=== PATIENT | female | born 1990 | race Caucasian/White ===

== ENCOUNTER 2016-04-18 08:31 | Emergency (ER) | payer OTHER ==
[~2016-04-18] VITALS: Ht 157.5 cm; Wt 60.0 kg
[2016-04-18 08:38] VITALS: BP 104/66; PULSE 72; RESP 16; TEMP 98.2; O2SAT 100
[2016-04-18] MEDS ORDERED: TRAM50TA PO (09:03)
--- NOTE | 2016-04-18 09:07 | PD ---
HPI Chief Complaint: Abdominal Pain Time Seen by Provider: 08:45 Travel History International Travel<30 days: No Contact w/Intl Traveler<30days: No Traveled to known affect area: No History of Present Illness HPI The patient was seen and examined in the presence of the nurse. This patient has intermittent pelvic pain for the last 3 months. It occurs frequently. She has no bleeding or discharge. No fever. She has no nausea or vomiting or diarrhea. She eats well is that she has a lot of pain. It is not affected by eating. She has not had it evaluated. She is in the process of getting a primary physician. PFSH Past Medical History Asthma: Yes Diminished Hearing: No Tetanus Vaccination: Unknown Influenza Vaccination: Yes ?: Not LMP: 04/14/2016 Tubal Ligation: Yes Social History Alcohol Use: Yes (Occ.) Tobacco Use: Yes (2 PPD) Substance Use: No Allergies-Medications (Allergen,Severity, Reaction): Coded Allergies: No Known Allergies (Unverified , 04/18/16) Reported Meds & Prescriptions Reported Meds & Active Scripts Active Tramadol (Tramadol HCl) 50 Mg Tab 50 Mg PO Q6H PRN Review of Systems General / Constitutional: No: Fever Eyes: No: Visual changes HENT: No: Headaches Cardiovascular: No: Chest Pain or Discomfort Respiratory: No: Shortness of Breath Gastrointestinal: Positive: Abdominal Pain Genitourinary: Positive: Pelvic Pain, No: Dysuria Musculoskeletal: No: Pain Skin: No Rash Neurologic: No: Weakness Psychiatric: No: Depression Endocrine: No: Polydipsia Hematologic/Lymphatic: No: Easy Bruising Physical Exam Narrative GENERAL: Well-nourished, well-developed patient in no apparent distress. SKIN: Warm and dry. HEAD: Atraumatic. Normocephalic. EYES: Pupils equal and round. No scleral icterus. No injection or drainage. ENT: No nasal bleeding or discharge. Mucous membranes pink and moist. NECK: Trachea midline. No JVD. CARDIOVASCULAR: Regular rate and rhythm. No murmur appreciated. RESPIRATORY: No accessory muscle use. Clear to auscultation. Breath sounds equal bilaterally. GASTROINTESTINAL: Abdomen soft, some tenderness in the right lower quadrant without rebound or guarding, nondistended. Hepatic and splenic margins not palpable. MUSCULOSKELETAL: No obvious deformities. No clubbing. No cyanosis. No edema. NEUROLOGICAL: Awake and alert. No obvious cranial nerve deficits. Motor grossly within normal limits. Normal speech. PSYCHIATRIC: Appropriate mood and affect; insight and judgment normal. Data Data Last Documented VS Vital Signs Date Time Temp Pulse Resp B/P Pulse Ox O2 Delivery O2 Flow Rate FiO2 04/18/16 08:38 98.2 72 16 104/66 100 MDM Medical Decision Making Medical Screen Exam Complete: Yes Emergency Medical Condition: Yes Medical Record Reviewed: Yes Differential Diagnosis Tubal , colitis, appendicitis Narrative Course I have reviewed the patient's electronic medical record. I believe I can rule out appendicitis based on history and exam. She's had this for 3 months without nausea or vomiting and eats well during the pain. I don't think it requires emergent CT to evaluate the appendix. I think she would be much more likely to get benefit from a pelvic ultrasound. I offered to order one as an outpatient but she declines. She would like to establish the primary first which makes sense as there will be nobody to act on the results regardless. I wrote her some tramadol for pain relief. Urine is negative. She has no vaginal discharge or irritation or any fever to suggest infection. Diagnosis Primary Impression: Chronic pelvic pain in female Additional Instructions: The patient was advised to follow up with their physician and return if they worsen. The patient was warned about potential sedation for the medications they will receive on prescription. Med/Other Pt SpecificInfo: Prescription(s) given Scripts Tramadol 50 Mg Tab50 Mg PO Q6H PRN (PAIN) #25 TAB Ref 0 Prov:Torrey Manuel MD 04/18/16 Disposition: 01 DISCHARGE HOME Condition: Stable Torrey Manuel MD Apr 18, 2016 09:07
== END 2016-04-18 09:21 | disposition home or self-care (01) ==
LOC: PHED 08:31
DX: R10.2 Pelvic and perineal pain (principal); G89.29 Other chronic pain
CPT/HCPCS: 99283

== ENCOUNTER 2016-08-26 09:43 | Emergency (ER) | payer OTHER ==
[~2016-08-26] VITALS: Ht 157.5 cm; Wt 59.5 kg
[~2016-08-26 09:43] MED LIST: TRAM50TA PO
[2016-08-26 09:52] VITALS: BP 112/63; PULSE 79; RESP 18; TEMP 98.9; O2SAT 99
[2016-08-26] MEDS ORDERED: AZIT250T3 PO (10:37)
[2016-08-26] MEDS ORDERED: ALBUAER3 INH (10:37)
[2016-08-26] MEDS ORDERED: PROM6.256 PO (10:37)
--- NOTE | 2016-08-26 10:37 | PD ---
HPI Chief Complaint: ENT Complaint Time Seen by Provider: 10:22 Travel History International Travel<30 days: No Contact w/Intl Traveler<30days: No Traveled to known affect area: No History of Present Illness HPI This is a 26-year-old female who presents to the emergency department with productive cough, rhinorrhea, body aches and fatigue. She says she feels feverish but doesn't have a thermometer so couldn't check her temperature. She denies any nausea, vomiting, diarrhea or dysuria. Her symptoms of been constant for 3 days and worsening. PFSH Past Medical History Asthma: Yes Diminished Hearing: No Tetanus Vaccination: Unknown ?: Not Tubal Ligation: Yes Social History Alcohol Use: Yes (Occ.) Tobacco Use: Yes (/2 PPD) Substance Use: No Allergies-Medications (Allergen,Severity, Reaction): Coded Allergies: No Known Allergies (Unverified , 08/26/16) Reported Meds & Prescriptions Reported Meds & Active Scripts Active No Active Prescriptions or Reported Medications Review of Systems Except as stated in HPI: all other systems reviewed are Neg Physical Exam Narrative GENERAL:Well appearing, no acute distress SKIN: Focused skin assessment warm and dry. HEAD: Atraumatic. Normocephalic. EYES: Pupils equal and round. No injection or drainage. ENT: Moist mucous membranes. Mild posterior pharyngeal erythema with no exudates. No lymphadenopathy. NECK: Trachea midline. CARDIOVASCULAR: Regular rate and rhythm. No murmur appreciated. RESPIRATORY: Clear to auscultation. Breath sounds equal bilaterally. GASTROINTESTINAL: Abdomen soft, non-tender, nondistended. MUSCULOSKELETAL: No obvious deformities. NEUROLOGICAL: Awake and alert. No obvious cranial nerve deficits. Moving all extremities. PSYCHIATRIC: Appropriate mood and affect; insight and judgment normal. Data Data Last Documented VS Vital Signs Date Time Temp Pulse Resp B/P Pulse Ox O2 Delivery O2 Flow Rate FiO2 08/26/16 09:52 98.9 79 18 112/63 99 MDM Medical Decision Making Medical Screen Exam Complete: Yes Emergency Medical Condition: Yes Differential Diagnosis Bronchitis, pneumonia, viral upper respiratory infection Narrative Course This is a 26-year-old female who has a history of smoking who presents to the emergency department with a productive cough, rhinorrhea and body aches. I suspect the patient has bronchitis. She has a reassuring physical exam and no hypoxia. Patient will be discharged on bronchodilators, antibiotic and cough medication in the setting of her smoking history. Diagnosis Primary Impression: Bronchitis Patient Instructions: General Instructions Additional Instructions: If you develop severe chest pain, shortness of breath, sweating, lightheadedness , dizziness or difficulty breathing return to the emergency department immediately. Followup with your primary care physician in 2-3 days if your symptoms are not resolved. Med/Other Pt SpecificInfo: Prescription(s) given Scripts Promethazine-Codeine Liq 6.25-10 Mg/5 Ml Syrp5 Ml PO Q4H PRN (COUGH AND/OR COLD SYMPTOMS) #100 ML Prov:Linda Rowley MD 08/26/16 Albuterol 8.5 GM Inh (Proair Hfa 8.5 GM Inh)90 Mcg/Act Aer2 Puff INH Q4-6H PRN ( SHORTNESS OF BREATH) #1 INHALER 108 mcg/actuation Prov:Linda Rowley MD 08/26/16 Azithromycin 250 Mg [id number] Mg PO DIRECTED #6 TAB Take 2 tabs (500 mg) on day 1 then 1 tab daily x 4 days. Prov:Linda Rowley MD 08/26/16 Disposition: 01 DISCHARGE HOME Condition: Stable Linda Rowley MD Aug 26, 2016 10:37
== END 2016-08-26 10:56 | disposition home or self-care (01) ==
LOC: PHED 09:43
DX: J40 Bronchitis, not specified as acute or chronic (principal); F17.210 Nicotine dependence, cigarettes, uncomplicated
CPT/HCPCS: 99284

== ENCOUNTER 2017-02-05 08:14 | Emergency (ER) | payer OTHER ==
[~2017-02-05] VITALS: Ht 157.5 cm; Wt 64.0 kg
[~2017-02-05 08:14] MED LIST changes: +ALBUAER3 INH; +AZIT250T3 PO; +PROM6.256 PO; -TRAM50TA PO
[2017-02-05 08:22] VITALS: BP 116/78; PULSE 87; RESP 15; TEMP 98.4; O2SAT 100
--- NOTE | 2017-02-05 09:19 | PD ---
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 Also had white vaginal discharge for a few days. Pt said her baby's father informed her he was just treated for STI and she wants to be treated as well. Denies any fever, chest pain, sob, n/v, abdominal pain, vaginal bleeding. PFSH Past Medical History Asthma: Yes Diminished Hearing: No ?: Not LMP: 01/13/2017 Tubal Ligation: Yes Social History Alcohol Use: Yes (Occ.) Tobacco Use: Yes (1/2 PPD) Substance Use: No Allergies-Medications (Allergen,Severity, Reaction): Coded Allergies: No Known Allergies (Unverified Adverse Reaction, Unknown, 02/05/17) Reported Meds & Prescriptions Reported Meds & Active Scripts Active No Active Prescriptions or Reported Medications Review of Systems Except as stated in HPI: all other systems reviewed are Neg Physical Exam Narrative GENERAL: 27yo F not in distress. SKIN: Focused skin assessment warm/dry. HEAD: Atraumatic. Normocephalic. CARDIOVASCULAR: Regular rate and rhythm. No murmur appreciated. RESPIRATORY: No accessory muscle use. Clear to auscultation. Breath sounds equal bilaterally. GASTROINTESTINAL: Abdomen soft, non-tender, nondistended. No rebound tenderness or guarding. PELVIC: Small amount of vaginal discharge. No CMT or adnexal tenderness bilaterally. MUSCULOSKELETAL: No obvious deformities. No clubbing. No cyanosis. No edema. NEUROLOGICAL: Awake and alert. No obvious cranial nerve deficits. Motor grossly within normal limits. Normal speech. PSYCHIATRIC: Appropriate mood and affect; insight and judgment normal. Data Data Last Documented VS Vital Signs Date Time Temp Pulse Resp B/P (MAP) Pulse Ox O2 Delivery O2 Flow Rate FiO2 02/05/17 08:22 98.4 87 15 116/78 (91) 100 Orders Orders Gc And Chlamydia Pcr (02/05/17 09:17) Wet Prep Profile (02/05/17 09:17) Urinalysis - C+S If Indicated (02/05/17 09:17) Ed Urine Pregnancytest Poc (02/05/17 09:17) Urine Culture (02/05/17 09:22) Azithromycin Powd Pack (Zithromax Powd P (02/05/17 11:15) Rocephin 250mg Vial Im X 1 (02/05/17 11:15) Lidocaine 1% Inj (50 Ml) (Xylocaine 1% I (02/05/17 11:15) Labs Laboratory Tests Test 02/05/17 09:22 02/05/17 09:37 Urine Collection Type CLEAN CATCH Urine Color YELLOW Urine Turbidity SLIGHT Urine pH 6.5 Urine Specific [place] 1.026 Urine Protein NEG mg/dL Urine Glucose (UA) NEG mg/dL Urine Ketones NEG mg/dL Urine Occult Blood MOD Urine Nitrite NEG Urine Bilirubin NEG Urine Leukocyte Esterase MOD Urine RBC 20-24 /hpf Urine WBC 100-200 /hpf Urine WBC Clumps MOD Urine Squamous Epithelial Cells > 8 /hpf Urine Bacteria MANY /hpf Microscopic Urinalysis Comment CULTURE INDICATED Urine Collection Time 09:22 Clue Cells (Wet Prep) NONE SEEN Vaginal Trichomonas (Wet Prep) NONE SEEN Vaginal Yeast (Wet Prep) NONE SEEN MDM Medical Decision Making Medical Screen Exam Complete: Yes Emergency Medical Condition: Yes Differential Diagnosis STI vs. bacterial vaginosis vs. vaginal candidiasis vs. UTI Narrative Course 27yo F with dysuria and vaginal discharge. Also wants to be treated for STI since her baby's father was treated for chlamydia recently. UA showed moderate leukocyte. WBC 100-200, will treat with oral antibiotics. Urine negative. Wet prep negative. Pt given ceftriaxone IM with lidocaine and azithromycin empirically. No systemic symptoms and well appearing. Return precautions given. Diagnosis Primary Impression: UTI (urinary tract infection) Qualified Codes: N39.0 - Urinary tract infection, site not specified; R31.9 - Hematuria, unspecified Patient Instructions: General Instructions Departure Forms: Tests/Procedures Additional Instructions: Please follow up with your health informatics instructor in 2-3 days. Return to the ED if symptoms worsen. Med/Other Pt SpecificInfo: Prescription(s) given Scripts Sulfamethoxazole-Trimethoprim (Bactrim DS) 800-160 Mg Tab 1 TAB PO BID for Infection, #14 TAB 0 Refills Prov: Janette Reyes DO 02/05/17 Disposition: 01 DISCHARGE HOME Condition: Stable Janette Reyes Feb 05, 2017 09:19
[2017-02-05 09:29] LABS: BLOOD, URINE MOD (NEG); GLUCOSE,URINE NEG (NEG); KETONE, URINE NEG (NEG); NITRITE,URINE NEG (NEG); PH, URINE 6.5 (5.0-8.5)
[2017-02-05 09:43] LABS: METHOD OF COLLECTION CLEAN CATCH; URINE COLOR YELLOW (YELLW/STRAW)
[2017-02-05 09:45] LABS: BACTERIA, URINE MANY /hpf; SQUAMOUS EPITHELIAL CELL URINE > 8 /hpf (0-5); WBC, URINE 100-200 /hpf (0-5)
[2017-02-05 09:46] LABS: COMMENT (UR) CULTURE INDICATED; CULTURE IF INDICATED CULTURE INDICATED
[2017-02-05] MEDS ORDERED: cefTRIAXone 250 MG VIAL IM ONE (11:15)
[2017-02-05] MEDS ORDERED: LIDOCAINE HCL 1% 50 ML VIAL IM ONE (11:15)
[2017-02-05] MEDS ORDERED: AZITHROMYCIN PWD FOR SUSP 1 GM PACKET PO ONE (11:15)
[2017-02-05] MEDS ORDERED: BACT800T5 PO (11:18)
[2017-02-05 18:08] LABS: CHLAMYDIA PCR DETECTED (NOT DETECT); NEISSERIA PCR NOT DETECTED (NOT DETECT)
== END 2017-02-05 11:58 | disposition home or self-care (01) ==
LOC: PHED 08:14
DX: N39.0 Urinary tract infection, site not specified (principal); R31.9 Hematuria, unspecified; B96.20 Unspecified Escherichia coli [E. coli] as the cause of diseases classified elsewhere; N89.8 Other specified noninflammatory disorders of vagina; F17.200 Nicotine dependence, unspecified, uncomplicated; Z87.09 Personal history of other diseases of the respiratory system
CPT/HCPCS: 81001; 84703; 87077; 87086; 87186; 87210; 87491; 87591; 96372; 99284; J0696

== ENCOUNTER 2017-06-08 21:21 | Emergency (ER) | payer SELFPAY ==
[~2017-06-08] VITALS: Ht 157.5 cm; Wt 65.0 kg
[~2017-06-08 21:21] MED LIST changes: -ALBUAER3 INH; -AZIT250T3 PO; +BACT800T5 PO; -PROM6.256 PO
[2017-06-08 22:09] VITALS: BP 153/67; PULSE 60; RESP 18; TEMP 98.3; O2SAT 100
[2017-06-10] MEDS ORDERED: AZIT250T3 PO (10:49)
[2017-06-10] MEDS ORDERED: PRED20 PO (10:49)
== END 2017-06-09 00:54 | disposition left against medical advice (07) ==
LOC: NED 21:21
DX: R07.9 Chest pain, unspecified (principal); Z53.21 Procedure and treatment not carried out due to patient leaving prior to being seen by health care provider
CPT/HCPCS: 99281

== ENCOUNTER 2017-06-10 10:24 | Emergency (ER) | payer SELFPAY ==
[~2017-06-10] VITALS: Ht 157.5 cm; Wt 61.0 kg
[2017-06-10 10:30] VITALS: BP 124/55; PULSE 99; RESP 16; TEMP 97.9; O2SAT 100
[2017-06-10] MEDS ORDERED: PRED20 PO (10:49)
[2017-06-10] MEDS ORDERED: AZIT250T3 PO (10:49)
--- NOTE | 2017-06-10 10:49 | PD ---
HPI Chief Complaint: Cold / Flu Symptoms Time Seen by Provider: 10:43 Travel History International Travel<30 days: No Contact w/Intl Traveler<30days: No Traveled to known affect area: No History of Present Illness HPI 27-year-old female reports about 1 week of cough, chest congestion and occasional headache. She notes yellow phlegm at times. She denies fever. About one year ago the patient had bronchitis and reports it felt very similar. 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 Patient smokes tobacco. She has a history of asthma and uses an albuterol inhaler at home which times helps with coughing. PFSH Past Medical History Asthma: Yes Diminished Hearing: No Tetanus Vaccination: < 5 Years Influenza Vaccination: Yes ?: Not LMP: 05/27/17 Tubal Ligation: Yes Social History Alcohol Use: Yes (Occ.) Tobacco Use: Yes (/ PPD) Substance Use: No Allergies-Medications (Allergen,Severity, Reaction): Coded Allergies: No Known Allergies (Unverified Adverse Reaction, Unknown, 06/10/17) Reported Meds & Prescriptions Reported Meds & Active Scripts Active Prednisone 20 Mg Tab 40 Mg PO DAILY 4 Days Take 40 mg (2 tablets) daily for 5 days Azithromycin 250 Mg Tab 250 Mg PO DIRECTED Take 2 tabs (500 mg) on day 1 then 1 tab daily x 4 days. Review of Systems General / Constitutional: No: Fever, Chills Cardiovascular: No: Chest Pain or Discomfort Respiratory: Positive: Cough, No: Shortness of Breath Physical Exam Narrative GENERAL: 27-year-old female pleasant well-nourished well-developed no acute distress Vital Signs Date Time Temp Pulse Resp B/P (MAP) Pulse Ox O2 Delivery O2 Flow Rate FiO2 06/10/17 10:30 97.9 99 16 124/55 (78) 100 SKIN: Warm and dry. HEAD: Atraumatic. Normocephalic. EYES: Pupils equal and round. No scleral icterus. No injection or drainage. ENT: No nasal bleeding or discharge. Mucous membranes pink and moist. Posterior oropharynx is widely patent. NECK: Trachea midline. No JVD. CARDIOVASCULAR: Regular rate and rhythm. RESPIRATORY: Lungs are clear. No dyspnea/tachypnea. GASTROINTESTINAL: Abdomen soft, non-tender, nondistended. Hepatic and splenic margins not palpable. MUSCULOSKELETAL: Extremities without clubbing, cyanosis, or edema. No obvious deformities. Data Data Last Documented VS Vital Signs Date Time Temp Pulse Resp B/P (MAP) Pulse Ox O2 Delivery O2 Flow Rate FiO2 06/10/17 10:30 97.9 99 16 124/55 (78) 100 VS reviewed Orders Orders Ed Discharge Order (06/10/17 10:49) MDM Medical Decision Making Medical Screen Exam Complete: Yes Emergency Medical Condition: Yes Medical Record Reviewed: Yes Differential Diagnosis Bronchitis, influenza, pneumonia Narrative Course Presentation consistent with bronchitis The patient does mention some fullness in the left ear on exam there is trace erythema about the tympanic membrane without middle ear effusion or obscuration of bony landmarks such that ear infection is considered very unlikely. Scripts as below. Diagnosis Primary Impression: Bronchitis Referrals: Primary Care Physician 2 days Med/Other Pt SpecificInfo: Prescription(s) given Scripts Prednisone (Prednisone) 20 Mg Tab 40 MG PO DAILY for 4 Days, #8 TAB 0 Refills Take 40 mg (2 tablets) daily for 5 days Prov: Paulo Colon MD 06/10/17 Azithromycin (Azithromycin) 250 Mg Tab 250 MG PO DIRECTED for Infection, #6 TAB 0 Refills Take 2 tabs (500 mg) on day 1 then 1 tab daily x 4 days. Prov: Paulo Colon MD 06/10/17 Disposition: 01 DISCHARGE HOME Condition: Stable Paulo Colon MD Jun 10, 2017 10:49
== END 2017-06-10 11:10 | disposition home or self-care (01) ==
LOC: PHEFT 10:24
DX: J45.909 Unspecified asthma, uncomplicated (principal); F17.210 Nicotine dependence, cigarettes, uncomplicated; Z79.899 Other long term (current) drug therapy
CPT/HCPCS: 99284

== ENCOUNTER 2017-08-21 21:17 | Emergency (ER) | payer OTHER ==
[~2017-08-21] VITALS: Ht 157.5 cm; Wt 61.3 kg
[~2017-08-21 21:17] MED LIST changes: +AZIT250T3 PO; -BACT800T5 PO; +PRED20 PO
[2017-08-21 21:19] VITALS: BP 113/73; PULSE 62; RESP 18
[2017-08-21] MEDS ORDERED: cefTRIAXone 250 MG VIAL IM ONE (21:30)
[2017-08-21] MEDS ORDERED: AZITHROMYCIN 250 MG TAB PO ONE (21:30)
[2017-08-21] MEDS ORDERED: NYST1000 SWISH-SWAL (21:33)
--- NOTE | 2017-08-21 21:35 | PD ---
HPI Chief Complaint: ENT Complaint Time Seen by Provider: 21:25 Travel History International Travel<30 days: No Contact w/Intl Traveler<30days: No Traveled to known affect area: No History of Present Illness HPI Patient is a 27 year old female presents to the ER for evaluation of sore throat for the past week. Patient is concerned that she may have contracted gonorrhea of the throat. Patient states she is sexually active with one man but she is unsure of his loyalty. No history of HIV, diabetes. Patient denies fever, cough, congestion, N/V, abdominal pain, vd/vb. Symptoms mild. PFSH Past Medical History Asthma: Yes Diminished Hearing: No ?: Not LMP: 08-11-17 Tubal Ligation: Yes Social History Alcohol Use: Yes (Occ.) Tobacco Use: Yes (/ PPD) Substance Use: No Allergies-Medications (Allergen,Severity, Reaction): Coded Allergies: No Known Allergies (Verified Adverse Reaction, Unknown, 08/21/17) Reported Meds & Prescriptions Reported Meds & Active Scripts Active Nystatin Liq 100,000 unit/ml Susp 5 Ml SWISH-SWAL QID 10 Days Prednisone 20 Mg Tab 40 Mg PO DAILY 4 Days Take 40 mg (2 tablets) daily for 5 days Azithromycin 250 Mg Tab 250 Mg PO DIRECTED Take 2 tabs (500 mg) on day 1 then 1 tab daily x 4 days. Review of Systems Except as stated in HPI: all other systems reviewed are Neg Physical Exam Narrative GENERAL: Well-nourished, well-developed patient. SKIN: Focused skin assessment warm/dry. HEAD: Normocephalic. Atraumatic EYES: No scleral icterus. No injection or drainage. ENT: TMs clear bilaterally, oropharynx widely patent, on the uvula there is a small plaque on the anterior surface, probably more consistent with thrush then with any other infection. She easily swallows and does not appear to have any airway compromise. NECK: Supple, trachea midline. No JVD or lymphadenopathy. CARDIOVASCULAR: Regular rate and rhythm without murmurs, gallops, or rubs. RESPIRATORY: Breath sounds equal bilaterally. No accessory muscle use. GASTROINTESTINAL: Abdomen soft, non-tender, nondistended. MUSCULOSKELETAL: No cyanosis, or edema. BACK: Nontender without obvious deformity. No CVA tenderness. Data Data Last Documented VS Vital Signs Date Time Temp Pulse Resp B/P (MAP) Pulse Ox O2 Delivery O2 Flow Rate FiO2 08/21/17 21:19 62 18 113/73 (86) Orders Orders Ceftriaxone Inj (Rocephin Inj) (08/21/17 21:30) Azithromycin (Zithromax) (08/21/17 21:30) Ed Discharge Order (08/21/17 21:35) Throat Culture (08/21/17 21:35) MDM Medical Decision Making Medical Screen Exam Complete: Yes Emergency Medical Condition: Yes Differential Diagnosis Thrush, gonorrhea seems unlikely, chlamydia seems unlikely. Narrative Course Patient room to the emergency department, her abdomen is benign, has no vaginal complaints, will empirically cover with Rocephin and azithromycin, throat culture sent, I think more likely this is thrush, discussed nystatin swish and swallow, she stable for discharge discussed follow-up with the department for testing for HIV hepatitis and syphilis. Diagnosis Primary Impression: Thrush Additional Instructions: If you have concerns for STD, you need to follow up with the health department for testing of hepatitis, HIV and syphilis. Have your partners tested and treated as well. Always use condoms. Med/Other Pt SpecificInfo: Prescription(s) given Scripts Nystatin Liq (Nystatin Liq) 100,000 unit/ml Susp 5 ML SWISH-SWAL QID for Infection for 10 Days, ML 0 Refills Prov: Gurpreet Stahl MD 08/21/17 Disposition: 01 DISCHARGE HOME Condition: Stable Gurpreet Stahl MD Aug 21, 2017 21:35
== END 2017-08-21 22:24 | disposition home or self-care (01) ==
LOC: PHEFT 21:17
DX: B37.0 Candidal stomatitis (principal); J45.909 Unspecified asthma, uncomplicated; F17.200 Nicotine dependence, unspecified, uncomplicated
CPT/HCPCS: 87070; 96372; 99283; J0696